=== PATIENT | female | born 1945 | race Caucasian/White ===

== ENCOUNTER → 2018-01-03 | Outpatient (CLI) | payer OTHER ==
[~2018-01-03] MED LIST: ASPI81TA28 PO; CALC500C70 PO; DPR600 PO; LORA-741 PO; LSN20 PO; OXYC1TAB3 PO; PRLSR20 PO; SIMV20TA2 PO; ZOLP10TA PO
--- NOTE | 2018-01-03 11:46 | DIAGNOSTIC IMAGING REPORT ---
L KNEE 1 OR 2 VIEWS ROUTINE CLINICAL HISTORY: Left knee pain. COMPARISON: None FINDINGS: There is evidence for a previous left knee arthroplasty with hardware removal with placement of antibiotic coated spacer. There is no fracture. There is no radiographic evidence for osteomyelitis. Suprapatellar densities may be within the joint space. There is a possible small left knee joint effusion. IMPRESSION: 1. Previous arthroplasty with hardware removal and placement of spacer. No acute fracture. No radiographic evidence for osteomyelitis. 2. Possible small left knee joint effusion. Electronically signed by: David Ware M.D. 01/03/2018 11:45 AM Dictated Date/Time: 01/03/2018 11:34 AM
== END | disposition home or self-care (01) ==
LOC: C.RADBC 10:47
PROVIDERS: ATTEND Physician Assistant
DX: M25.562 Pain in left knee (principal); Z96.9 Presence of functional implant, unspecified; Z98.890 Other specified postprocedural states